=== PATIENT | female | born 1995 | race Caucasian/White ===

== ENCOUNTER 2020-07-25 13:51 | Emergency (ER) | payer BC ==
[~2020-07-25] VITALS: Ht 165.1 cm; Wt 65.8 kg
[~2020-07-25 13:51] MED LIST: FLEXERIL PO; KEFLEX500 MG PO; MOBIC7.5 MG PO; NOHOMEMEDICATIONS; NORCO 5-325 TA1 EAC1 PO; ONDANSETRON HCL4 M2 PO; PROMS25 WY RECTAL; REGLAN 10 MG TA10 MG PO; VENLAFAXIN75 MG/1 T2 PO; ZANTAC 150MG T150 M1 PO; ZOFRAN ODT4 MG PO
[2020-07-25 15:01] LABS: URINE BILIRUBIN NEGATIVE (Negative); URINE BLOOD NEGATIVE (Negative); URINE CLARITY CLEAR; URINE COLOR YELLOW; URINE GLUCOSE-RANDOM NEGATIVE (Negative); URINE LEUKOCYTES-REFLEX NEGATIVE (Negative); URINE NITRITE-REFLEX NEGATIVE (Negative); URINE PROTEIN 2+ (Negative); URINE UROBILINOGEN 0.2 E.U./dl (0.2-1.0)
[2020-07-25 15:04] LABS: URINE KETONES 3+ (Negative)
[2020-07-25 15:11] LABS: MUCUS >6 Heavy strn/LPF (None Seen); SQUAMOUS >10 Many /LPF (0-3)
[2020-07-25 15:12] LABS: HYALINE CASTS 0-3 Few /LPF (None Seen)
[2020-07-25 15:13] LABS: BACTERIA-REFLEX 1-9 Few /HPF (None Seen); CRYSTALS None Seen /LPF (None Seen); URINE RBC None Seen /HPF (0-2); URINE WBC-REFLEX 0-5 Rare /HPF (0-5)
[2020-07-25 15:20] LABS: HEMATOCRIT 43.6 % (37.0-47.0); HEMOGLOBIN 14.5 gm/dL (12.0-15.0); MCH 30.1 pg (26.0-34.0); MCHC 33.2 g/dL (28.0-37.0); MCV 90.7 fL (80.0-100.0); MPV 8.5 fl. (7.2-11.1); NUCLEATED RBCS 0 /100WBC; PLATELET COUNT* 312 thou/uL (150-400); RBC 4.81 mil/uL (4.20-5.00); RDW-CV 13.2 % (10.5-14.5); WBC 19.5 thou/uL (4.0-11.0)
[2020-07-25 15:30] LABS: CALCIUM 9.1 mg/dL (8.5-10.1); CREATININE 0.9 mg/dL (0.6-1.3); POTASSIUM 3.7 mmol/L (3.5-5.1)
[2020-07-25 15:40] LABS: ALBUMIN 4.6 g/dL (3.4-5.0); TOTAL BILIRUBIN 0.5 mg/dL (<0.1-1.0); TOTAL PROTEIN 8.2 g/dL (6.4-8.2)
[2020-07-25 15:50] LABS: ABSOLUTE MONOCYTES 0.2 thou/uL (0.0-1.2); ABSOLUTE NEUTROPHILS 18.3 thou/uL (1.6-8.1); PLATELET ESTIMATE ADEQUATE; TOXIC GRANULATION 1+
[2020-07-25] MEDS ORDERED: VISTARIL 25 MG25 M1 PO (15:58)
[2020-07-25] MEDS ORDERED: ONDANSETRON ODT4 MG PO (15:58)
[2020-07-25 16:17] VITALS: BP 119/68
== END 2020-07-25 16:17 | disposition home or self-care (01) ==
LOC: M.ERS 13:51
PROVIDERS: Physician Assistant
DX: D72.829 Elevated white blood cell count, unspecified (principal); F41.9 Anxiety disorder, unspecified; R10.84 Generalized abdominal pain; R11.2 Nausea with vomiting, unspecified; F32.9 Major depressive disorder, single episode, unspecified; G43.909 Migraine, unspecified, not intractable, without status migrainosus